=== PATIENT | male | born 2000 | race Two or more races ===

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

== ENCOUNTER 2021-08-05 12:45 | Emergency (ER) | payer SELFPAY ==
[~2021-08-05] VITALS: Ht 180.3 cm; Wt 65.9 kg
[2021-08-05 13:01] VITALS: BP 137/86
[2021-08-05] MEDS ORDERED: AMOX1TAB61 PO (13:22)
[2021-08-05] MEDS ORDERED: IBUP-1007 PO (13:22)
--- NOTE | 2021-08-05 13:23 | PHYS DOC ---
Past Medical History Past Medical History: No Pertinent History Past Surgical History: No Surgical History, Appendectomy Smoking Status: Never Smoker Alcohol Use: None Drug Use: None General Adult EDM: Chief Complaint: DENTAL PROBLEM HPI: HPI: Patient is a 21-year-old male that presents today with a broken tooth. Patient states that yesterday he was eating some food and he bit down on his left side and he said he felt that the tooth crack and fall out. Patient states he has had issues with this to wisdom tooth for a while and does not have a primary care dentist that he follows up with. Patient denies fever and chills. Patient was given a list of dental clinics to follow-up with by the nursing staff, patient was encouraged to start calling today for follow-up early next month Review of Systems: Review of Systems: Constitutional: Denies fever or chills. [] Eyes: Denies change in visual acuity. [] HENT: Left lower jaw pain Respiratory: Denies cough or shortness of breath. [] Cardiovascular: Denies chest pain or edema. [] GI: Denies abdominal pain, nausea, vomiting, bloody stools or diarrhea. [] : Denies dysuria. [] Musculoskeletal: Denies back pain or joint pain. [] Integument: Denies rash. [] Neurologic: Denies headache, focal weakness or sensory changes. [] Endocrine: Denies polyuria or polydipsia. [] Lymphatic: Denies swollen glands. [] Psychiatric: Denies depression or anxiety. [] Heart Score: C/O Chest Pain: N/A Risk Factors: Risk Factors: DM, Current or recent (<one month) smoker, HTN, HLP, family history of CAD, obesity. Risk Scores: Score 0 - 3: 2.5% MACE over next 6 weeks - Discharge Home Score 4 - 6: 20.3% MACE over next 6 weeks - Admit for Clinical Observation Score 7 - 10: 72.7% MACE over next 6 weeks - Early Invasive Strategies Allergies: Allergies: Allergies Coded Allergies Type Severity Reaction Last Updated Verified No Known Drug Allergies 02/26/14 No Physical Exam: PE: Constitutional: Well developed, well nourished, mild distress, non-toxic appearance. [] HENT: Normocephalic, atraumatic, bilateral external ears normal, oropharynx moist, no oral exudates, left lower back molar half of it missing, gumline is swollen, no drainage noted Eyes: PERRLA, EOMI, conjunctiva normal, no discharge. [] Neck: Normal range of motion, no tenderness, supple, no stridor. [] Cardiovascular:Heart rate regular rhythm, no murmur [] Lungs & Thorax: Bilateral breath sounds clear to auscultation [] Abdomen: Bowel sounds normal, soft, no tenderness, no masses, no pulsatile masses. [] Skin: Warm, dry, no erythema, no rash. [] Back: No tenderness, no CVA tenderness. [] Extremities: No tenderness, no cyanosis, no clubbing, ROM intact, no edema. [] Neurologic: Alert and oriented X 3, normal motor function, normal sensory f unction, no focal deficits noted. [] Psychologic: Affect normal, judgement normal, mood normal. [] Current Patient Data: Vital Signs: Vital Signs Date Time Temp Pulse Resp B/P (MAP) Pulse Ox O2 Delivery O2 Flow Rate FiO2 08/05/21 13:01 98.1 87 18 137/86 (103) 97 Room Air 98.1 EKG: EKG: [] Radiology/Procedures: Radiology/Procedures: [] Course & Med Decision Making: Course & Med Decision Making Pertinent Labs and Imaging studies reviewed. (See chart for details) Spoke to patient in great detail about the importance of following up with the dental clinic [facility], patient verbalized understanding of this. Will be given prescription for antibiotics and Motrin. Patient encouraged to return for increased facial swelling, fever or chills, or inability to swallow due to swelling of your mouth or throat Tristonon Disclaimer: Kathrine Disclaimer: This electronic medical record was generated, in whole or in part, using a voice recognition dictation system. Departure Departure Impression: Primary Impression: Tooth fracture Qualified Codes: S02.5XXA - Fracture of tooth (traumatic), initial encounter for closed fracture Disposition: 07 LEFT AWOL/ELOPED Condition: STABLE Referrals: NO PCP (PCP) Patient Instructions: Dental Pain, [id number] Additional Instructions: Take antibiotics as directed until completed Take Motrin 600 mg every 6 hours as needed for pain take with food may cause GI upset Follow-up with dentist [facility] for further management of this dental issue Return to the emergency department for increased swelling, fever or chills, or inability to swallow due to pain or swelling Scripts Ibuprofen (IBUPROFEN) 600 Mg Tablet 600 MG PO PRN Q6HRS PRN for INFLAMMATION, #30 TAB Prov: WINDY MARTELL CUSTODIAL SUPERVISOR 08/05/21 Amoxicillin/Potassium Clav (AUGMENTIN 875-125 TABLET) 1 Each Tablet 1 TAB PO BID for dental for 10 Days, #20 TAB 0 Refills Prov: WINDY MARTELL APRN 08/05/21 WINDY MARTELL APRN Aug 05, 2021 13:23
[2021-08-05] MEDS ORDERED: HYDROcodone/APAP 5/325MG 1 TAB TABLET PO ONE (13:30)
== END 2021-08-05 13:32 | disposition left against medical advice (07) ==
LOC: ER 12:45
DX: S02.5XXA Fracture of tooth (traumatic), initial encounter for closed fracture (principal); X58.XXXA Exposure to other specified factors, initial encounter; Y93.89 Activity, other specified; Y92.89 Other specified places as the place of occurrence of the external cause; Y99.8 Other external cause status
CPT/HCPCS: 99283